=== PATIENT | female | born 2000 | race Caucasian/White ===

== ENCOUNTER 2021-09-18 15:13 | Inpatient (IN) | payer MEDICAID, SELFPAY ==
[2021-09-18] MEDS: trazodone 50 mg Tablet PO (20:47)
[2021-09-18] MEDS: OLANZapine 5 mg ODT PO (20:47)
[2021-09-19 02:11] VITALS: BP 103/71; PULSE 73; RESP 18; O2SAT 98
[2021-09-19 06:00] VITALS: BP 95/63; PULSE 85; RESP 18; O2SAT 97
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
[2021-09-19] MEDS: hyDROXYzine 25 mg Capsule 50 MG PO (12:17)
[2021-09-19] MEDS: nicotine 2 mg Gum BUCCAL ×2 (12:42→18:11)
[2021-09-19 14:00] VITALS: BP 96/69; PULSE 76; RESP 16; TEMP 36.8; O2SAT 99
[2021-09-19] MEDS: fluoxetine 20 mg Capsule PO (15:12)
[2021-09-19] MEDS: BuSPIRONE 10 mg Tablet 20 MG PO (17:37)
[2021-09-19 20:22] VITALS: BP 100/68; PULSE 64; RESP 16; TEMP 36.6; O2SAT 99
[2021-09-19] MEDS: trazodone 50 mg Tablet PO (20:48)
[2021-09-19] MEDS: acetaminophen 325 mg Tablet 650 MG PO (20:48)
[2021-09-20] MEDS: OLANZapine 5 mg ODT PO ×2 (00:54→11:20)
--- NOTE | 2021-09-20 01:13 | PC.NURSE ---
Patient c/o severe anxiety and not sleeping well. PRN Olanzapine SL given as ordered.
[2021-09-20 06:00] VITALS: BP 97/56; PULSE 58; RESP 16; TEMP 36.3; O2SAT 98
[2021-09-20] MEDS: fluoxetine 20 mg Capsule PO (08:56)
[2021-09-20] MEDS: BuSPIRONE 10 mg Tablet 20 MG PO ×2 (08:56→17:44)
--- NOTE | 2021-09-20 11:51 | P.NPUPN_ITS ---
Subjective NPU Subjective: Patient presents today reporting that she is homesick hopeful that she can go home sooner than later. We discussed the fact that the treatment team/including social workers will be back tomorrow and we can work on developing a plan for where she will follow-up outpatient after discharge. We discussed her suicide and 96 hour hold we we will continue to monitor for improvement on medication. Mental Status Exam MSE Comments: This is a well nourished, well developed white female in hospital scrubs with adequate grooming and limited eye contact. No abnormal movements except for mild psychomotor retardation. Cooperative with exam in mild distress. Speech was decreased rate and volume. Mood described as depressed, affect congruent. Thought process, organized. Thought content: patient denies an y suicidal or homicidal ideation, no delusions reported or noted, and denies any auditory or visual hallucinations. Attention and concentration are intact and memory is reliable though none were formally tested. She is alert and oriented three times. Insight and judgment are limited. Impulse control appears fair.? Vitals/I&O/Wt Last Vital Signs Temp 97.3 F L 09/20/21 06:00 Pulse 58 L 09/20/21 06:00 Resp 16 09/20/21 06:00 BP 97/56 09/20/21 06:00 Pulse Ox 98 09/20/21 06:00 Weight last 48 hrs Weight 63.503 kg A&P Assessment and plan (1) Alcohol withdrawal: Status: Acute (2) Alcohol intoxication: Status: Acute (3) Opioid use disorder, severe, dependence: Status: Acute (4) Cannabis use disorder, moderate, dependence: Status: Acute (5) Depression: Status: Acute (6) PTSD (post-traumatic stress disorder): Status: Acute Plan This is a 21 year old white female with post traumatic stress disorder, depression, alcohol and marijuana abuse versus use disorder severe, and history of methamphetamine use who presents on a 96 hour hold after making suicidal threats and having a reported intentional overdose presenting to the outside hospital intoxicated. 1.? Continue current medications. Started Prozac 20 mg po qam. 2.? Encourage individual, group and milieu therapy 3.? Continue q-15 minute check for safety 4.? Recommend sober living treatment at the highest level of care to which the patient is willing to commit. Involuntary Hold Information 96 Hour Hold: 96 Hour Involuntary Admission: Yes 96 Hour Hold Ending Date: 09/24/21 96 Hour Hold Ending Time: 15:15 Attestations NPU Medical Necessity Statement*: Inpatient hospitalization is medically necessary and the clinically appropriate intervention at this time. We will monitor medic ations and make changes as indicated. Patient will be in the hospital for over two midnights. Likely length of stay is three to five days. Coding Level of Care Code Acute Learning Center Instructor for Mark Fwd Diagnoses Alcohol withdrawal F10.239 Alcohol intoxication F10.929 Opioid use disorder, severe, dependence F11.20 Cannabis use disorder, moderate, dependence F12.20 Depression F32.A PTSD (post-traumatic stress disorder) F43.10
[2021-09-20] MEDS: nicotine 2 mg Gum BUCCAL (13:17)
[2021-09-20 14:00] VITALS: BP 104/68; PULSE 86; RESP 17; TEMP 36.8; O2SAT 97
[2021-09-20] MEDS: acetaminophen 325 mg Tablet 650 MG PO (14:21)
[2021-09-20] MEDS: hyDROXYzine 25 mg Capsule 50 MG PO ×2 (15:13→21:34)
[2021-09-20 20:22] VITALS: BP 98/64; PULSE 56; RESP 14; TEMP 36.5; O2SAT 98
[2021-09-20] MEDS: trazodone 50 mg Tablet PO ×2 (20:39→23:47)
[2021-09-20 21:40] VITALS: BP 98/64; PULSE 56; RESP 14; TEMP 36.5; O2SAT 98
[2021-09-21 06:00] VITALS: BP 89/51; PULSE 54; RESP 14; TEMP 36.4; O2SAT 98
[2021-09-21] MEDS: fluoxetine 20 mg Capsule PO (07:32)
[2021-09-21] MEDS: BuSPIRONE 10 mg Tablet 20 MG PO ×2 (07:32→19:49)
[2021-09-21] MEDS: OLANZapine 5 mg ODT PO (11:10)
[2021-09-21 14:00] VITALS: BP 102/69; PULSE 63; RESP 16; TEMP 36.7; O2SAT 97
[2021-09-21] MEDS: nicotine 2 mg Gum BUCCAL (14:02)
[2021-09-21] MEDS: propranolol 20 mg Tablet PO ×2 (15:05→20:15)
--- NOTE | 2021-09-21 16:11 | PC.NURSE ---
PRN MEDICATIONS HAS C/O ANXIETY THROUGHOUT THE SHIFT. ZYDIS 5 MG GIVEN ORDERED THIS AM. THIS AFTERNOON STATES SHE IS STILL ANXIOUS AND NEEDING HER NEW ANXIETY MEDS. PROPANOLOL GIVEN ORDERED. MEDICATIONS EFFECTIVE, CURRENTLY IN DAY AREA CONVERSING WITH PEERS AND WATCHING TV.
--- NOTE | 2021-09-21 16:35 | P.NPUPN_ITS ---
Subjective NPU Subjective: Patient returns today reporting that she is continuing to have anxiety and does not feel the BuSpar is doing much. She also reports that she has not been sleeping well. We discussed the risk benefits and alternatives of starting propranolol 20 mg p.o. 3 times daily as needed and doxepin 10 mg p.o. nightly for anxiety and sleep respectively and she understood agreed to proceed as is documented in this note. We discussed continuing to consider for safety and when discharged might be appropriate. Mental Status Exam MSE Comments: This is a well nourished, well developed white female in [facility] with adequate grooming and limited eye contact. No abnormal movements except for mild psychomotor retardation. Cooperative with exam in no acute distress. Speech was slightly decreased rate and volume. Mood described as anxious, affect congruent. Thought process, organized. Thought content: patient denies any suicidal or homicidal ideation, no delusions reported or noted, and denies any auditory or visual hallucinations. Attention and concentration are intact and memory is reliable though none were formally tested. She is alert and oriented three times. Insight and judgment are limited. Impulse control appears fair.? Vitals/I&O/Wt Last Vital Signs Temp 98.0 F 09/21/21 14:00 Pulse 63 09/21/21 14:00 Resp 16 09/21/21 14:00 BP 102/69 09/21/21 14:00 Pulse Ox 97 09/21/21 14:00 Weight last 48 hrs Weight 63.503 kg A&P Assessment and plan (1) Alcohol withdrawal: Status: Acute (2) Alcohol intoxication: Status: Acute (3) Opioid use disorder, severe, dependence: Status: Acute (4) Cannabis use disorder, moderate, dependence: Status: Acute (5) Depression: Status: Acute (6) PTSD (post-traumatic stress disorder): Status: Acute Plan This is a 21 year old white female with post traumatic stress disorder, depression, alcohol and marijuana abuse versus use disorder severe, and history of methamphetamine use who presents on a 96 hour hold after making suicidal threats and having a reported intentional overdose presenting to the outside hospital intoxicated. 1.? Continue current medications. Started Prozac 20 mg po qam. added propranolol 20 mg p.o. 3 times daily and doxepin 10 mg p.o. nightly. 2.? Encourage individual, group and milieu therapy 3.? Continue q-15 minute check for safety 4.? Recommend sober living treatment at the highest level of care to which the patient is willing to commit. Involuntary Hold Information 96 Hour Hold: 96 Hour Involuntary Admission: Yes 96 Hour Hold Ending Date: 09/24/21 96 Hour Hold Ending Time: 15:15 Attestations NPU Medical Necessity Statement*: Inpatient hospitalization is medically necessary and the clinically appropriate intervention at this time. We will monitor medications and make changes as indicated. Likely length of stay is 2-4 days. Coding Level of Care Code Acute Library Paraprofessional for g Fwd Diagnoses Alcohol withdrawal F10.239 Alcohol intoxication F10.929 Opioid use disorder, severe, dependence F11.20 Cannabis use disorder, moderate, dependence F12.20 Depression F32.A PTSD (post-traumatic stress disorder) F43.10
[2021-09-21] MEDS: doxepin 10 mg Capsule PO (19:49)
[2021-09-21 21:25] VITALS: BP 100/61; PULSE 65; RESP 20; TEMP 36.6; O2SAT 94
[2021-09-21] MEDS: acetaminophen 325 mg Tablet 650 MG PO (22:35)
[2021-09-22 06:00] VITALS: BP 99/64; PULSE 64; RESP 19; TEMP 36.6; O2SAT 93
[2021-09-22] MEDS: propranolol 20 mg Tablet PO ×3 (06:03→22:41)
[2021-09-22] MEDS: fluoxetine 20 mg Capsule PO (08:28)
[2021-09-22] MEDS: BuSPIRONE 10 mg Tablet 20 MG PO ×2 (08:28→20:28)
[2021-09-22] MEDS: nicotine 2 mg Gum BUCCAL ×3 (08:54→16:14)
[2021-09-22] MEDS: OLANZapine 5 mg ODT PO (10:02)
--- NOTE | 2021-09-22 10:02 | PC.NURSE ---
Zyprexa given for anxiety..after made phone call.states visteral makes me too tired
[2021-09-22 14:00] VITALS: BP 105/69; PULSE 74; RESP 18; TEMP 36.4; O2SAT 96
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
[2021-09-22] MEDS: doxepin 10 mg Capsule PO (20:28)
[2021-09-22 20:53] VITALS: BP 101/68; PULSE 69; RESP 16; TEMP 36.5; O2SAT 98
[2021-09-22] MEDS: trazodone 50 mg Tablet PO (21:32)
[2021-09-23 06:00] VITALS: BP 99/69; PULSE 68; RESP 16; TEMP 37.1; O2SAT 97
[2021-09-23] MEDS: propranolol 20 mg Tablet PO (06:46)
[2021-09-23] MEDS: nicotine 2 mg Gum BUCCAL (07:59)
[2021-09-23] MEDS: fluoxetine 20 mg Capsule PO (08:28)
[2021-09-23] MEDS: BuSPIRONE 10 mg Tablet 20 MG PO (08:28)
[2021-09-23] MEDS: OLANZapine 5 mg ODT PO (10:09)
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
[2021-09-23 14:27] VITALS: BP 99/69; PULSE 68; RESP 16; TEMP 37.1; O2SAT 97
== END 2021-09-23 14:42 | disposition home or self-care (01) | DRG 897 ==
PROVIDERS: Admitting Provider Psychiatry & Neurology Psychiatry; Visit Provider Psychiatry & Neurology Psychiatry
DX: F10.229 Alcohol dependence with intoxication, unspecified (principal); R45.851 Suicidal ideations; F11.20 Opioid dependence, uncomplicated; F10.239 Alcohol dependence with withdrawal, unspecified; Y90.8 Blood alcohol level of 240 mg/100 ml or more; F17.290 Nicotine dependence, other tobacco product, uncomplicated; F12.20 Cannabis dependence, uncomplicated; F15.11 Other stimulant abuse, in remission; F40.10 Social phobia, unspecified; F43.10 Post-traumatic stress disorder, unspecified; F32.9 Major depressive disorder, single episode, unspecified
CPT/HCPCS: 97150; 97165